=== PATIENT | female | born 1935 | race Caucasian/White ===

== ENCOUNTER 2017-07-12 12:05 | Inpatient (IN) | payer OTHER, MEDICARE ==
[2017-07-12] MEDS: IV NORMAL SALINE 1000ML BAG 1,000 ML IV ×2 (12:41→15:09)
[2017-07-12 12:44] LABS: INFLUENZA A PATIENT NEGATIVE (NEGATIVE); INFLUENZA B PATIENT NEGATIVE (NEGATIVE); OBC FLU VALID
[2017-07-12 12:51] LABS: BASO % 0 % (0-3); EOS % 0 % (0-3); HEMATOCRIT 43.9 % (36.0-47.0); HEMOGLOBIN 14.9 g/dL (12.0-15.5); LYMPH # 0.2 x10^3/uL (1.0-4.8); LYMPH % 2 % (24-48); MEAN CORPUSCULAR HEMOGLOBIN 32 pg (25-35); MEAN CORPUSCULAR HGB CONC 34 g/dL (31-37); MEAN CORPUSCULAR VOLUME 93 fL (79-100); MONO # 0.5 x10^3/uL (0.0-1.1); MONO % 4 % (0-9); NEUT % 94 % (31-73); PLATELET COUNT 167 x10^3/uL (140-400); RED BLOOD COUNT 4.71 x10^6/uL (3.50-5.40); WHITE BLOOD COUNT 12.8 x10^3/uL (4.0-11.0)
[2017-07-12 12:52] LABS: ADD MAN DIFF? YES
[2017-07-12 13:00] LABS: INR 1.1 (0.8-1.1); PARTIAL THROMBOPLASTIN TIME 25 SEC (24-38); PROTHROMBIN TIME PATIENT 13.2 SEC (11.7-14.0)
[2017-07-12 13:01] LABS: ANION GAP 11 (6-14); BLOOD UREA NITROGEN 13 mg/dL (7-20); BUN/CREATININE RATIO 14 (6-20); CALCIUM 9.5 mg/dL (8.5-10.1); CARBON DIOXIDE 27 mmol/L (21-32); CHLORIDE 98 mmol/L (98-107); CREATININE 0.9 mg/dL (0.6-1.0); GFR 59.9; GLUCOSE 145 mg/dL (70-99); POTASSIUM 3.5 mmol/L (3.5-5.1); SODIUM 136 mmol/L (136-145)
[2017-07-12 13:07] LABS: ALBUMIN 3.9 g/dL (3.4-5.0); ALK PHOS 65 U/L (46-116); ALT (SGPT) 18 U/L (14-59); AST (SGOT) 15 U/L (15-37); TOTAL BILIRUBIN 0.6 mg/dL (0.2-1.0); TOTAL PROTEIN 7.7 g/dL (6.4-8.2)
[2017-07-12 13:16] LABS: LACTIC ACID 2.5 mmol/L (0.4-2.0)
[2017-07-12 13:21] LABS: % BANDS 1 % (0-9); % BASOS 1 % (0-3); % LYMPHS 1 % (24-48); % MONOS 6 % (0-10); % SEGS 91 % (35-66)
[2017-07-12 13:22] LABS: PLT ESTIMATE ADEQUATE (ADEQUATE)
[2017-07-12 13:37] LABS: BILIRUBIN,URINE NEGATIVE (NEG); CLARITY,URINE CLEAR; GLUCOSE,URINE NEGATIVE (NEG); NITRITE,URINE NEGATIVE (NEG); PH,URINE 7.5; PROTEIN,URINE NEGATIVE (NEG-TRACE)
[2017-07-12 13:45] LABS: COLOR,URINE DK YELLOW
[2017-07-12 13:48] LABS: BACTERIA,URINE FEW /HPF (0-FEW); RBC,URINE 0 /HPF (0-2); SQUAMOUS EPITHELIAL CELL,UR MOD /LPF
[2017-07-12] MEDS ORDERED: LOPERAMIDE 2 MG CAPSULE PO (16:15)
[2017-07-12] MEDS ORDERED: DOCUSATE SODIUM 100 MG CAPSULE. PO (16:15)
[2017-07-12] MEDS ORDERED: ACETAMINOPHEN 325 MG TABLET. PO (16:15)
[2017-07-12] MEDS: GABAPENTIN 300 MG CAPSULE. PO ×2 (17:26→21:27)
[2017-07-12] MEDS: HYDROcodone/APAP 7.5/325MG 1 TAB TABLET PO (17:27)
[2017-07-12] MEDS ORDERED: NITROFURANTOIN MONOHYD/M-CRYST 100 MG CAPSULE. PO (21:00)
[2017-07-12] MEDS ORDERED: NON FORMULARY ITEM (Lactobacillus Acidophilus (Probiotic) 1 EACH) PO (21:00)
[2017-07-12] MEDS: carBAMazepine 200 MG TABLET PO (21:27)
[2017-07-12] MEDS: LACTOBACILLUS RHAMNOSUS GG 1 CAPSULE. PO (21:28)
[2017-07-12] MEDS: DONEPEZIL HCL 10 MG TABLET. PO (21:29)
[2017-07-13] MEDS: IV NORMAL SALINE 1000ML BAG 1,000 ML IV ×3 (01:01→13:05)
[2017-07-13 05:19] LABS: ADD MAN DIFF? NO
[2017-07-13 05:33] LABS: BASO % 0 % (0-3); EOS % 0 % (0-3); HEMATOCRIT 38.6 % (36.0-47.0); HEMOGLOBIN 13.2 g/dL (12.0-15.5); LYMPH # 0.6 x10^3/uL (1.0-4.8); LYMPH % 4 % (24-48); MEAN CORPUSCULAR HEMOGLOBIN 32 pg (25-35); MEAN CORPUSCULAR HGB CONC 34 g/dL (31-37); MEAN CORPUSCULAR VOLUME 94 fL (79-100); MONO # 0.6 x10^3/uL (0.0-1.1); MONO % 5 % (0-9); NEUT # 11.5 x10^3uL (1.8-7.7); NEUT % 90 % (31-73); PLATELET COUNT 161 x10^3/uL (140-400); RED BLOOD COUNT 4.12 x10^6/uL (3.50-5.40); WHITE BLOOD COUNT 12.8 x10^3/uL (4.0-11.0)
[2017-07-13 06:06] LABS: ALBUMIN/GLOBULIN RATIO 0.9 (1.0-1.7); ALK PHOS 44 U/L (46-116); ALT (SGPT) 17 U/L (14-59); ANION GAP 9 (6-14); AST (SGOT) 15 U/L (15-37); BLOOD UREA NITROGEN 12 mg/dL (7-20); BUN/CREATININE RATIO 20 (6-20); CALCIUM 8.2 mg/dL (8.5-10.1); CARBON DIOXIDE 26 mmol/L (21-32); CHLORIDE 100 mmol/L (98-107); CREATININE 0.6 mg/dL (0.6-1.0); GFR 95.7; GLUCOSE 148 mg/dL (70-99); POTASSIUM 3.2 mmol/L (3.5-5.1); SODIUM 135 mmol/L (136-145); TOTAL BILIRUBIN 0.5 mg/dL (0.2-1.0); TOTAL PROTEIN 6.5 g/dL (6.4-8.2)
[2017-07-13] MEDS: GABAPENTIN 300 MG CAPSULE. PO ×4 (09:18→21:51)
[2017-07-13] MEDS: ENOXAPARIN 40 MG/0.4 ML SYRINGE. SQ (09:18)
[2017-07-13] MEDS: carBAMazepine 200 MG TABLET PO ×2 (09:20→21:51)
[2017-07-13] MEDS: amLODIPine BESYLATE 10 MG TABLET PO (09:21)
[2017-07-13] MEDS: LISINOPRIL 20 MG TABLET PO (09:22)
[2017-07-13] MEDS: POTASSIUM CHLORIDE 20 MEQ TABLET.ER. PO (09:23)
[2017-07-13] MEDS: HYDROcodone/APAP 7.5/325MG 1 TAB TABLET PO ×2 (09:25→17:39)
[2017-07-13] MEDS: LACTOBACILLUS RHAMNOSUS GG 1 CAPSULE. PO ×2 (09:26→21:50)
[2017-07-13] MEDS: MELOXICAM 7.5 MG TABLET PO (09:28)
[2017-07-13] MEDS: cefTRIAXone IV Push 1 GM VIAL. IVP (13:10)
[2017-07-13] MEDS: VANCOMYCIN 1.5 GM in IV DEXTROSE 5 %-0.45 % NACL 500 ML IV (13:11)
[2017-07-13] MEDS: VANCOMYCIN PER PHARMACY MC (13:43)
[2017-07-13 16:15] LABS: MRSA BY PCR Negative (Negative)
[2017-07-13] MEDS: DONEPEZIL HCL 10 MG TABLET. PO (21:51)
[2017-07-14] MEDS: IV NORMAL SALINE 1000ML BAG 1,000 ML IV ×2 (01:35→14:10)
[2017-07-14 05:53] LABS: ADD MAN DIFF? NO
[2017-07-14 06:11] LABS: BASO % 0 % (0-3); EOS # 0.5 x10^3/uL (0.0-0.7); EOS % 6 % (0-3); HEMATOCRIT 39.8 % (36.0-47.0); HEMOGLOBIN 13.6 g/dL (12.0-15.5); LYMPH % 12 % (24-48); MEAN CORPUSCULAR HEMOGLOBIN 32 pg (25-35); MEAN CORPUSCULAR HGB CONC 34 g/dL (31-37); MEAN CORPUSCULAR VOLUME 94 fL (79-100); MONO # 0.8 x10^3/uL (0.0-1.1); MONO % 10 % (0-9); NEUT # 5.5 x10^3uL (1.8-7.7); NEUT % 71 % (31-73); PLATELET COUNT 151 x10^3/uL (140-400); RED BLOOD COUNT 4.26 x10^6/uL (3.50-5.40); RED CELL DISTRIBUTION WIDTH 12.7 % (11.5-14.5); WHITE BLOOD COUNT 7.8 x10^3/uL (4.0-11.0)
[2017-07-14 06:21] LABS: ANION GAP 8 (6-14); BLOOD UREA NITROGEN 9 mg/dL (7-20); CALCIUM 8.1 mg/dL (8.5-10.1); CARBON DIOXIDE 27 mmol/L (21-32); CHLORIDE 102 mmol/L (98-107); CREATININE 0.6 mg/dL (0.6-1.0); GFR 95.7; GLUCOSE 128 mg/dL (70-99); POTASSIUM 3.3 mmol/L (3.5-5.1); SODIUM 137 mmol/L (136-145)
[2017-07-14] MEDS: MELOXICAM 7.5 MG TABLET PO (10:08)
[2017-07-14] MEDS: LISINOPRIL 20 MG TABLET PO (10:09)
[2017-07-14] MEDS: HYDROcodone/APAP 7.5/325MG 1 TAB TABLET PO ×2 (10:10→16:27)
[2017-07-14] MEDS: amLODIPine BESYLATE 10 MG TABLET PO (10:10)
[2017-07-14] MEDS: GABAPENTIN 300 MG CAPSULE. PO ×3 (10:10→16:27)
[2017-07-14] MEDS: carBAMazepine 200 MG TABLET PO (10:10)
[2017-07-14] MEDS: LACTOBACILLUS RHAMNOSUS GG 1 CAPSULE. PO (10:11)
[2017-07-14] MEDS: POTASSIUM CHLORIDE 20 MEQ TABLET.ER. PO (10:11)
[2017-07-14] MEDS: ENOXAPARIN 40 MG/0.4 ML SYRINGE. SQ (10:12)
[2017-07-14] MEDS ORDERED: VANCOMYCIN 1 GM in IV 1/2 NORMAL SALINE 250 ML IV (13:00)
== END 2017-07-14 16:38 | disposition home or self-care (01) | DRG 871 ==
LOC: ER 12:05 → 6 SOUTH 14:00
DX: A41.9 Sepsis, unspecified organism (principal); G93.41 Metabolic encephalopathy; E78.5 Hyperlipidemia, unspecified; E87.6 Hypokalemia; F03.90 Unspecified dementia, unspecified severity, without behavioral disturbance, psychotic disturbance, mood disturbance, and anxiety; I10 Essential (primary) hypertension; G50.0 Trigeminal neuralgia; M19.90 Unspecified osteoarthritis, unspecified site; J30.9 Allergic rhinitis, unspecified
CPT/HCPCS: 36415; 51701; 71045; 80048; 80053; 81001; 83605; 85007; 85025; 85610; 85730; 87040; 87086; 87205; 87641; 87804; 87804-59; 92526-GN; 92610-GN; 96361; 96365; 97116-GP; 97163-GP; 97165-GO; 99285-25; J0690; J0696; J1650; J3370; J7030

== ENCOUNTER 2018-05-29 11:27 | Emergency (ER) | payer MEDICARE, MEDICAID ==
[~2018-05-29] VITALS: Ht 165.1 cm; Wt 74.8 kg
[~2018-05-29 11:27] MED LIST: ACET325T9 PO; AMLO1CAP15 PO; ATEN50TA PO; CARB100T4 PO; CIPR500T94 PO; CRAN450T3 PO; DOCU100C28 PO; DONE10TA7 PO; GABA600T2 PO; HYDR-2765 PO; LACT1CAP6 PO; LEVO500T59 PO; LISI-334 PO; LOPE2CAP PO; MAGN400T3 PO; MELO15TA6 PO; NITR100C62 PO; POTA20TA4 PO; POTA20TA82 PO
--- NOTE | 2018-05-29 11:44 | PHYS DOC ---
Past Medical History Past Medical History: Arthritis, High Cholesterol, Hypertension, Other Additional Past Medical Histor: TRIGEMINAL NEURALGI, PVD, allergic rhinitis, alz. DISEASE Past Surgical History: Other Additional Past Surgical Histo: DENIES Alcohol Use: None Drug Use: None Adult General Chief Complaint Chief Complaint: MECHANICAL FALL HPI HPI Patient is a 83 year old female [facility] after she fell, hit her head on the floor. There was no loss of consciousness. Patient complaint of left arm pain, denies any back pain, no pelvic pain, no hip pain, no lower extremity pain. Review of Systems Review of Systems Constitutional: Denies fever or chills [] Eyes: Denies change in visual acuity, redness, or eye pain [] HENT: Denies nasal congestion or sore throat [] Respiratory: Denies cough or shortness of breath [] Cardiovascular: No additional information not addressed in HPI [] GI: Denies abdominal pain, nausea, vomiting, bloody stools or diarrhea [] : Denies dysuria or hematuria [] Musculoskeletal: Denies back pain or joint pain. POSITIVE FOR LEFT ARM PAIN. Integument: Denies rash or skin lesions [] Neurologic: Denies headache, focal weakness or sensory changes [] Endocrine: Denies polyuria or polydipsia [] All other systems were reviewed and found to be within normal limits, except as documented in this note. Allergies Allergies Allergies Coded Allergies Type Severity Reaction Last Updated Verified No Known Drug Allergies 08/10/13 No Physical Exam Physical Exam Constitutional: Well developed, well nourished, no acute distress, non-toxic appearance. [] HENT: Normocephalic, There is skin contusion on forehead, bilateral external ears normal, oropharynx moist, no oral exudates, nose normal. [] Eyes: PERRLA, EOMI, conjunctiva normal, no discharge. [] Neck: Normal range of motion, no tenderness, supple, no stridor. [] Cardiovascular:Heart rate regular rhythm, LOUD SYSTOLIC EJECTION MURMUR. Lungs & Thorax: Bilateral breath sounds clear to auscultation [] Abdomen: Bowel sounds normal, soft, no tenderness, no masses, no pulsatile masses. [] Skin: Warm, dry, no erythema, no rash. [] Back: No tenderness, no CVA tenderness. [] Extremities: No tenderness, no cyanosis, no clubbing, ROM intact, no edema. LEFT ARM TENDER TO PALPATION, NO SWELLING, NO OPEN WOUND. Neurologic: Alert and oriented X 3, normal motor function, normal sensory function, no focal deficits noted. [] Psychologic: Affect normal, judgement normal, mood normal. [] Current Patient Data Vital Signs Vital Signs Date Time Temp Pulse Resp B/P (MAP) Pulse Ox O2 Delivery O2 Flow Rate FiO2 05/29/18 15:30 58 20 96 05/29/18 11:27 97.3 179/73 (108) Room Air 97.3 EKG EKG [] Radiology/Procedures Radiology/Procedures [][facility] [address] [place] [address] IMAGING REPORT Signed PATIENT: JOHN MARCOS ACCOUNT: [id number] : 1935 LOCATION: ER AGE: 83 SEX: F EXAM STATUS: REG ER ORD. PHYSICIAN: KATIE TIJERINA DO REASON: FELL AT THE WA, RIGHT SIDE HEAD INJURY PROCEDURE: CT HEAD AND CERVICAL SPINE WO CT Head W/O Contrast: History: FALL, RIGHT SIDE HEAD INJURY, ALTERED MENTAL STATUS
NECK PAIN, PRIOR SENT Comparison: October 24, 2011 Axial images were obtained without contrast. There is moderate diffuse atrophy. There is no mass effect, extraaxial fluid collections or hydrocephalus. There is no gross bleed. Moderate, patchy periventricular and subcortical white matter hypoattenuation is seen. There is no focal loss of peter-white matter distinction to suggest acute ischemia, i.e. stroke. Impression: No acute findings. End impression CT C-Spine without contrast: Clinical History: FALL, RIGHT SIDE HEAD INJURY, ALTERED MENTAL STATUS
NECK PAIN, PRIOR SENT Technique: Axial helical images of the cervical spine were obtained without contrast, axial coronal and sagittal reconstruction was performed. Findings: There is no loss of vertebral body stature. There is no prevertebral soft tissue swelling. The vertebral bodies are well aligned. The C1-C2 relationship is normal. The visualized osseous structures appear normal. Evaluation of the central canal is limited without contrast. There is multiple posterior disc bulges resulting in flattening of the thecal sac. There does not appear to be gross flattening of the cervical cord. There is moderate narrowing of multiple neuroforamen. There is multiple small hyperattenuating masses in the thyroid. There is a 12 mm x 9 mm soft tissue mass in the left parotid. Impression: 1. Moderate degenerative changes with no evidence of an acute fracture. Clinical correlation suggested. 2. Multiple masses in the thyroid recommend correlation with TSH. Follow-up ultrasound as an outpatient may be necessary. 3. Left parotid mass appears benign. Recommend a follow-up ultrasound as an outpatient. RS Compliance Statement: One or more of the following individualized dose reduction techniques were utilized for this examination: 1. Automated exposure control 2. Adjustment of the mA and/or kV according to patient size 3. Use of iterative reconstruction technique Electronically signed by: Virgilio Castro III, MD (05/29/2018 12:33 PM) [facility] DICTATED and SIGNED BY: VIRGILIO CASTRO III, MD DATE: 05/29/18 1223 [facility] [address] [place], [place] [id number] IMAGING REPORT Signed PATIENT: JOHN MARCOS ACCOUNT: [id number] : 1935 LOCATION: ER AGE: 83 SEX: F EXAM STATUS: REG ER ORD. PHYSICIAN: KATIE TIJERINA DO REASON: FELL, LEFT ARM PAIN PROCEDURE: HUMERUS LEFT Left humerus, 2 views, 05/29/2018: HISTORY: Fall The bony structures are demineralized. No humeral fracture is identified. IMPRESSION: No acute bony abnormality is detected. Portable chest, 05/29/2018: HISTORY: Follow-up, palpitations Comparison is made to a study from 10/23/2011. The patient is rotated to the right. The heart is at the upper limits of normal in size. There is calcific plaquing of the aorta. The pulmonary vascularity is normal. No pulmonary infiltrate is seen. There is no evidence of pneumothorax or pleural fluid. Moderate spurring is present in the spine. IMPRESSION: 1. Aortic atherosclerosis. 2. No acute cardiopulmonary abnormality is detected. Electronically signed by: Jono Hawkins MD (05/29/2018 12:53 PM) [facility] DICTATED and SIGNED BY: JONO HAWKINS MD DATE: 05/29/18 1248 Course & Med Decision Making Course & Med Decision Making Pertinent Labs and Imaging studies reviewed. (See chart for details) [] Dragon Disclaimer Dragon Disclaimer This electronic medical record was generated, in whole or in part, using a voice recognition dictation system. Departure Departure Impression: Primary Impression: Head contusion Disposition: HOME, SELF-CARE Condition: STABLE Referrals: ELLIOT TREVIZO MD (PCP) FOLLOW UP WITH YOUR DOCTOR IN 2 DAYS FOR REEVALUATION. Patient Instructions: Head Injury, Adult TIJERINAKATIE DO May 29, 2018 11:44
--- NOTE | 2018-05-29 12:37 | RAD ---
CT Head W/O Contrast: History: FALL, RIGHT SIDE HEAD INJURY, ALTERED MENTAL STATUS
NECK PAIN, PRIOR SENT Comparison: October 24, 2011 Axial images were obtained without contrast. There is moderate diffuse atrophy. There is no mass effect, extraaxial fluid collections or hydrocephalus. There is no gross bleed. Moderate, patchy periventricular and subcortical white matter hypoattenuation is seen. There is no focal loss of peter-white matter distinction to suggest acute ischemia, i.e. stroke. Impression: No acute findings. End impression CT C-Spine without contrast: Clinical History: FALL, RIGHT SIDE HEAD INJURY, ALTERED MENTAL STATUS
NECK PAIN, PRIOR SENT Technique: Axial helical images of the cervical spine were obtained without contrast, axial coronal and sagittal reconstruction was performed. Findings: There is no loss of vertebral body stature. There is no prevertebral soft tissue swelling. The vertebral bodies are well aligned. The C1-C2 relationship is normal. The visualized osseous structures appear normal. Evaluation of the central canal is limited without contrast. There is multiple posterior disc bulges resulting in flattening of the thecal sac. There does not appear to be gross flattening of the cervical cord. There is moderate narrowing of multiple neuroforamen. There is multiple small hyperattenuating masses in the thyroid. There is a 12 mm x 9 mm soft tissue mass in the left parotid. Impression: 1. Moderate degenerative changes with no evidence of an acute fracture. Clinical correlation suggested. 2. Multiple masses in the thyroid recommend correlation with TSH. Follow-up ultrasound as an outpatient may be necessary. 3. Left parotid mass appears benign. Recommend a follow-up ultrasound as an outpatient. PQRS Compliance Statement: One or more of the following individualized dose reduction techniques were utilized for this examination: 1. Automated exposure control 2. Adjustment of the mA and/or kV according to patient size 3. Use of iterative reconstruction technique Electronically signed by: Mayo Muñoz III, MD (05/29/2018 12:33 PM) [id number]
--- NOTE | 2018-05-29 12:57 | RAD ---
Left humerus, 2 views, 05/29/2018: HISTORY: Fall The bony structures are demineralized. No humeral fracture is identified. IMPRESSION: No acute bony abnormality is detected. Portable chest, 05/29/2018: HISTORY: Follow-up, palpitations Comparison is made to a study from 10/23/2011. The patient is rotated to the right. The heart is at the upper limits of normal in size. There is calcific plaquing of the aorta. The pulmonary vascularity is normal. No pulmonary infiltrate is seen. There is no evidence of pneumothorax or pleural fluid. Moderate spurring is present in the spine. IMPRESSION: 1. Aortic atherosclerosis. 2. No acute cardiopulmonary abnormality is detected. Electronically signed by: Jono Hawkins MD (05/29/2018 12:53 PM) [facility]
[2018-05-29 15:00] VITALS: BP 144/65
== END 2018-05-29 15:45 | disposition home or self-care (01) ==
LOC: ER 11:27
DX: S00.93XA Contusion of unspecified part of head, initial encounter (principal); M79.602 Pain in left arm; E78.00 Pure hypercholesterolemia, unspecified; I10 Essential (primary) hypertension; G30.9 Alzheimer's disease, unspecified; F02.80 Dementia in other diseases classified elsewhere, unspecified severity, without behavioral disturbance, psychotic disturbance, mood disturbance, and anxiety; I49.3 Ventricular premature depolarization; W18.09XA Striking against other object with subsequent fall, initial encounter; Y93.89 Activity, other specified; Y92.89 Other specified places as the place of occurrence of the external cause; Y99.8 Other external cause status
CPT/HCPCS: 70450; 71045; 72125; 73060; 99284-25

== ENCOUNTER 2019-02-04 17:37 | Emergency (ER) | payer MEDICARE, MEDICAID ==
[~2019-02-04] VITALS: Ht 172.7 cm; Wt 74.8 kg
[~2019-02-04 17:37] MED LIST changes: -AMLO1CAP15 PO; +AMLO1CAP54 PO; -GABA600T2 PO; +GABA600T7 PO
--- NOTE | 2019-02-04 18:06 | PHYS DOC ---
Past Medical History Past Medical History: Arthritis, Dementia, High Cholesterol, Hypertension, Other Additional Past Medical Histor: TRIGEMINAL NEURALGI, PVD, allergic rhinitis, alz. DISEASE,neuropathy (CAMRYN CASTRO MD) Past Medical History Limited due to dementia (MARA ISABEL DO) Past Surgical History: Other Additional Past Surgical Histo: unknown (CAMRYN CASTRO MD) Past Surgical History Limited due to dementia (MARA ISABEL DO) Alcohol Use: None Drug Use: None (CAMRYN CASTRO MD) Social History Limited due to dementia (MARA ISABEL DO) Adult General Chief Complaint Chief Complaint: altered level of consciousness HPI HPI Patient is a 83 year old female patient with history of dementia [facility] jail who presents EMS with increasing confusion. Patient is disoriented x3 and unable to give history. senior living stated she is usually disoriented and this is her baseline but also they mentioned that she is more confused than his usual. (CAMRYN CASTRO MD) HPI Limited due to dementia (MARA ISABEL DO) Review of Systems Review of Systems Unable to obtain (CAMRYN CASTRO MD) Review of Systems Limited due to dementia (MARA ISABEL DO) Current Medications Current Medications Current Medications Medications (Trade) Dose Ordered Sig/Nader Start Time Stop Time Status Last Admin Dose Admin Ceftriaxone Sodium (Rocephin) 1 gm 1X ONCE 02/04/19 20:00 02/04/19 20:01 DC 02/04/19 19:39 1 GM Lorazepam (Ativan Inj) 0.5 mg 1X ONCE 02/04/19 18:30 02/04/19 18:31 DC 02/04/19 19:03 0.5 MG Sodium Chloride 1,000 ml @ 1,000 mls/hr 1X ONCE 02/04/19 18:30 02/04/19 19:29 DC 02/04/19 19:03 1,000 MLS/HR (MARA ISABEL DO) Allergies Allergies Allergies Coded Allergies Type Severity Reaction Last Updated Verified No Known Drug Allergies 08/10/13 No (MARA ISABEL DO) Physical Exam Physical Exam Constitutional: Well nourished, mild distress, non-toxic appearance. [] HENT: Normocephalic, atraumatic. Eyes: PERRLA, EOMI, conjunctiva normal, no discharge. [] Neck: Normal range of motion, no tenderness, supple, no stridor. [] Cardiovascular:Heart rate regular rhythm, no murmur [] Lungs & Thorax: Bilateral breath sounds clear to auscultation [] Abdomen: Bowel sounds normal, soft, without guarding, no tenderness, no masses, no pulsatile masses. [] Skin: Warm, dry, no erythema, no rash. [] Back: No tenderness, no CVA tenderness. [] Extremities: No tenderness, no cyanosis, no clubbing, ROM intact, no edema. [] Neurologic: Alert , disoriented x 3 �3, no focal deficits noted. [] Psychologic: Unable to evaluate (CAMRYN CASTRO MD) Physical Exam Constitutional: Well developed, well nourished, no acute distress, non-toxic appearance HENT: Normocephalic, atraumatic, oropharynx moist Eyes: PERRL, EOMI, conjunctiva normal, no discharge Neck: Normal range of motion, no tenderness, supple Cardiovascular: Heart rate normal, regular rhythm Lungs & Thorax: Bilateral breath sounds clear to auscultation, no wheezing Abdomen: Soft, no tenderness Skin: Warm, dry, no erythema, no rash Extremities: No tenderness, ROM intact, no edema Neurologic: Alert and confused, normal motor function, normal sensory function, no focal deficits noted Psychologic: Limited, judgement abnormal (MARA ISABEL DO) Current Patient Data Vital Signs Vital Signs Date Time Temp Pulse Resp B/P (MAP) Pulse Ox O2 Delivery O2 Flow Rate FiO2 02/04/19 18:07 98.6 92 18 149/63 (91) 98 Room Air 98.6 (MARA ISABEL DO) Lab Values Laboratory Tests Test 02/04/19 17:45 02/04/19 18:00 02/04/19 18:10 02/04/19 18:54 Lactic Acid Level 0.6 mmol/L (0.4-2.0) KK-Iws-Y-Type Natriuretic Peptide 420 pg/mL (0-449) White Blood Count 10.0 x10^3/uL (4.0-11.0) Red Blood Count 4.15 x10^6/uL (3.50-5.40) Hemoglobin 13.5 g/dL (12.0-15.5) Hematocrit 38.3 % (36.0-47.0) Mean Corpuscular Volume 92 fL (79-100) Mean Corpuscular Hemoglobin 33 pg (25-35) Mean Corpuscular Hemoglobin Concent 35 g/dL (31-37) Red Cell Distribution Width 12.9 % (11.5-14.5) Platelet Count 202 x10^3/uL (140-400) Neutrophils (%) (Auto) 77 % (31-73) H Lymphocytes (%) (Auto) 11 % (24-48) L Monocytes (%) (Auto) 9 % (0-9) Eosinophils (%) (Auto) 2 % (0-3) Basophils (%) (Auto) 1 % (0-3) Neutrophils # (Auto) 7.7 x10^3/uL (1.8-7.7) Lymphocytes # (Auto) 1.1 x10^3/uL (1.0-4.8) Monocytes # (Auto) 0.9 x10^3/uL (0.0-1.1) Eosinophils # (Auto) 0.2 x10^3/uL (0.0-0.7) Basophils # (Auto) 0.1 x10^3/uL (0.0-0.2) Prothrombin Time 14.0 SEC (11.7-14.0) Prothrombin Time INR 1.1 (0.8-1.1) Sodium Level 133 mmol/L (136-145) L Potassium Level 4.0 mmol/L (3.5-5.1) Chloride Level 95 mmol/L (98-107) L Carbon Dioxide Level 29 mmol/L (21-32) Anion Gap 9 (6-14) Blood Urea Nitrogen 21 mg/dL (7-20) H Creatinine 0.7 mg/dL (0.6-1.0) Estimated GFR (Cockcroft-Gault) 79.9 BUN/Creatinine Ratio 30 (6-20) H Glucose Level 113 mg/dL (70-99) H Calcium Level 8.8 mg/dL (8.5-10.1) Magnesium Level 1.9 mg/dL (1.8-2.4) Total Bilirubin 0.5 mg/dL (0.2-1.0) Aspartate Amino Transferase (AST) 10 U/L (15-37) L Alanine Aminotransferase (ALT) 10 U/L (14-59) L Alkaline Phosphatase 72 U/L (46-116) Creatine Kinase 67 U/L (26-192) Troponin I Quantitative < 0.017 ng/mL (0.000-0.055) Total Protein 7.0 g/dL (6.4-8.2) Albumin 3.4 g/dL (3.4-5.0) Albumin/Globulin Ratio 0.9 (1.0-1.7) L Carbamazepine (Tegretol) Level 5.8 mcg/mL (4.0-12.0) Carbamazepine Last Dose Date 04/11/11 Carbamazepine Last Dose Time 1111 Urine Collection Type U cath Urine Color Yellow Urine Clarity Cloudy Urine pH 7.0 Urine Specific [place] 1.015 Urine Protein Negative mg/dL (NEG-TRACE) Urine Glucose (UA) Negative mg/dL (NEG) Urine Ketones (Stick) Negative mg/dL (NEG) Urine Blood Trace (NEG) Urine Nitrite Positive (NEG) Urine Bilirubin Negative (NEG) Urine Urobilinogen Dipstick 1.0 mg/dL (0.2 mg/dL) Urine Leukocyte Esterase Large (NEG) Urine RBC 0 /HPF (0-2) Urine WBC 20-40 /HPF (0-4) Urine Squamous Epithelial Cells Few /LPF Urine Amorphous Sediment Present /HPF Urine Bacteria Moderate /HPF (0-FEW) Laboratory Tests 02/04/19 18:10 Laboratory Tests 02/04/19 18:10 (MARA ISABEL DO) EKG EKG [] (CAMRYN CASTRO MD) EKG @1826 NSR at 93bpm, NO ST elevation, t wave inversion aVL (MARA ISABEL DO) Radiology/Procedures Radiology/Procedures [] (CAMRYN CASTRO MD) Radiology/Procedures PROCEDURE: CT HEAD WO CONTRAST Exam: CT head INDICATION: Altered level of consciousness TECHNIQUE: Sequential axial images through the head were obtained without the administration of IV contrast. Comparisons: 05/29/2019 FINDINGS: No focal parenchymal lesion or hemorrhage is identified. There is no midline shift or sulcal effacement. Patchy hypodensity within the periventricular and subcortical white matter which is similar when compared to the prior exam. No acute vascular territory infarction is identified. Sawant-white distinction is preserved. The ventricular system is within normal limits without compression hydrocephalus. The basal cisterns are well maintained. The visualized portions of the paranasal sinuses and mastoid air cells are well-pneumatized. No acute fractures. IMPRESSION: Chronic ischemic changes without acute intracranial abnormality. Exposure: One or more of the following in the visualized dose reduction techniques were utilized for this examination: 1. Automated exposure control 2. Adjustment of the MA and/or KV according to patient size Use of iterative of reconstructive technique Electronically signed by: Nikki Delong MD (02/04/2019 6:46 PM) [place] [id number] PROCEDURE: PORTABLE CHEST 1V Exam: Chest one view INDICATION: Altered level consciousness TECHNIQUE: Frontal view of the chest Comparisons: None FINDINGS: The cardiomediastinal silhouette and pulmonary vessels are within normal limits. The lung and pleural spaces are clear. IMPRESSION: No acute cardiopulmonary process. Electronically signed by: Nikki Delong MD (02/04/2019 7:42 PM) [place] [id number] (MARA ISABEL DO) Course & Med Decision Making Course & Med Decision Making Pertinent Labs and Imaging studies are pending. Evaluation of patient in ER showed 83-year-old female patient presents of jail with dementia in because of increasing confusion. Labs and CT of head is pending. Sign out given to Dr Isabel at 1800 for further evaluation and final disposition. Discussed current findings and plan with patient and family, who acknowledge understanding and agreement. (CAMRYN CASTRO MD) Course & Med Decision Making Sign out received from Dr. Castro for patient with baseline dementia who presents with report of increased confusion and blood pressures 90s/60s. BP improved upon arrival. Patient pleasantly confused. EKG stable. Labs obtained and posted to chart. WBC WNL. Lactic acid WNL. UA with signs of infection. Empiric antibiotic given. CXR and CT head without acute process. Patient stable for discharge back to jail and follow-up with PCP. Discussed findings and plan with family, who acknowledge understanding and agreement. (MARA ISABEL DO) Dragon Disclaimer Dragon Disclaimer This electronic medical record was generated, in whole or in part, using a voice recognition dictation system. (CAMRYN CASTRO MD) Departure Departure Impression: Primary Impression: Altered level of consciousness Additional Impressions: Dementia Urinary tract infection Disposition: 01 HOME, SELF-CARE (back to jail) Condition: STABLE Referrals: ELLIOT TREVIZO MD (PCP) Patient Instructions: Altered Mental Status, Dementia, [id number], Urinary Tract Infection, [id number] Scripts Cephalexin (KEFLEX) 500 Mg Capsule 500 MG PO TID for 7 Days, #21 CAP Prov: MARA ISABEL DO 02/04/19 Problem Qualifiers Additional Impressions: Dementia Dementia type: unspecified type Dementia behavioral disturbance: without behavioral disturbance Qualified Codes: F03.90 - Unspecified dementia without behavioral disturbance Urinary tract infection Urinary tract infection type: acute cystitis Hematuria presence: without hematuria Qualified Codes: N30.00 - Acute cystitis without hematuria CAMRYN CASTRO MD Feb 04, 2019 18:06 MARA ISABEL DO Feb 04, 2019 18:34
[2019-02-04] MEDS ORDERED: IV NORMAL SALINE 1000ML BAG 1,000 ML IV ONE (18:30)
[2019-02-04 18:52] LABS: BASO # 0.1 x10^3/uL (0.0-0.2); BASO % 1 % (0-3); EOS # 0.2 x10^3/uL (0.0-0.7); EOS % 2 % (0-3); HEMATOCRIT 38.3 % (36.0-47.0); HEMOGLOBIN 13.5 g/dL (12.0-15.5); LYMPH # 1.1 x10^3/uL (1.0-4.8); LYMPH % 11 % (24-48); MEAN CORPUSCULAR HEMOGLOBIN 33 pg (25-35); MEAN CORPUSCULAR HGB CONC 35 g/dL (31-37); MEAN CORPUSCULAR VOLUME 92 fL (79-100); MONO # 0.9 x10^3/uL (0.0-1.1); MONO % 9 % (0-9); NEUT # 7.7 x10^3/uL (1.8-7.7); NEUT % 77 % (31-73); PLATELET COUNT 202 x10^3/uL (140-400); RED BLOOD COUNT 4.15 x10^6/uL (3.50-5.40); RED CELL DISTRIBUTION WIDTH 12.9 % (11.5-14.5)
[2019-02-04 19:05] LABS: BILIRUBIN,URINE NEGATIVE (NEG); CLARITY,URINE CLOUDY; COLOR,URINE YELLOW; NITRITE,URINE POSITIVE (NEG); PROTEIN,URINE NEGATIVE (NEG-TRACE)
[2019-02-04 19:13] LABS: CALCIUM 8.8 mg/dL (8.5-10.1); CREATININE 0.7 mg/dL (0.6-1.0); GFR 79.9
[2019-02-04 19:16] LABS: AMORPHOUS SEDIMENT,UR PRESENT /HPF; BACTERIA,URINE MODERATE /HPF (0-FEW); RBC,URINE 0 /HPF (0-2); SQUAMOUS EPITHELIAL CELL,UR FEW /LPF; WBC,URINE 20-40 /HPF (0-4)
[2019-02-04 19:20] LABS: ALBUMIN 3.4 g/dL (3.4-5.0); ALBUMIN/GLOBULIN RATIO 0.9 (1.0-1.7); MAGNESIUM 1.9 mg/dL (1.8-2.4); TOTAL BILIRUBIN 0.5 mg/dL (0.2-1.0)
--- NOTE | 2019-02-04 19:30 | RAD ---
Exam: CT head INDICATION: Altered level of consciousness TECHNIQUE: Sequential axial images through the head were obtained without the administration of IV contrast. Comparisons: 05/29/2019 FINDINGS: No focal parenchymal lesion or hemorrhage is identified. There is no midline shift or sulcal effacement. Patchy hypodensity within the periventricular and subcortical white matter which is similar when compared to the prior exam. No acute vascular territory infarction is identified. Sawant-white distinction is preserved. The ventricular system is within normal limits without compression hydrocephalus. The basal cisterns are well maintained. The visualized portions of the paranasal sinuses and mastoid air cells are well-pneumatized. No acute fractures. IMPRESSION: Chronic ischemic changes without acute intracranial abnormality. Exposure: One or more of the following in the visualized dose reduction techniques were utilized for this examination: 1. Automated exposure control 2. Adjustment of the MA and/or KV according to patient size Use of iterative of reconstructive technique Electronically signed by: Nikki Delong MD (02/04/2019 6:46 PM) [facility]
[2019-02-04 19:44] LABS: CARBAM 5.8 mcg/mL (4.0-12.0)
--- NOTE | 2019-02-04 19:45 | RAD ---
Exam: Chest one view INDICATION: Altered level consciousness TECHNIQUE: Frontal view of the chest Comparisons: None FINDINGS: The cardiomediastinal silhouette and pulmonary vessels are within normal limits. The lung and pleural spaces are clear. IMPRESSION: No acute cardiopulmonary process. Electronically signed by: Nikki Delong MD (02/04/2019 7:42 PM) [facility]
[2019-02-04] MEDS ORDERED: cefTRIAXone IV Push 1 GM VIAL. IVP ONE (20:00)
[2019-02-04] MEDS ORDERED: CEPH-264 PO (20:02)
[2019-02-04 21:15] VITALS: BP 174/60
--- NOTE | 2019-02-07 07:09 | EKG ---
[facility] [address] [place] [address] Test Date: 2019-02-04 Test Time: 18:26:49 Pat Name: JOHN MARCOS Department: Room: Gender: F Business Strategist: : 1935 Requested By: CAMRYN CASTRO Order Number: [id number] Reading MD: Measurements Intervals [place] Rate: 93 P: -17 WA: 214 QRS: -34 QRSD: 84 T: 71 QT: 328 QTc: 410 Interpretive Statements SINUS RHYTHM PROLONGED WA INTERVAL ABNORMAL LEFT AXIS DEVIATION LEFT ANTERIOR FASCICULAR BLOCK T ABNORMALITY IN HIGH LATERAL LEADS ABNORMAL ECG RI6.01 Unconfirmed report No previous ECG available for comparison
== END 2019-02-04 21:41 | disposition home or self-care (01) ==
LOC: ER 17:37
DX: F03.90 Unspecified dementia, unspecified severity, without behavioral disturbance, psychotic disturbance, mood disturbance, and anxiety (principal); N30.00 Acute cystitis without hematuria; R41.0 Disorientation, unspecified; I10 Essential (primary) hypertension; E78.00 Pure hypercholesterolemia, unspecified; I73.9 Peripheral vascular disease, unspecified; Z86.69 Personal history of other diseases of the nervous system and sense organs
CPT/HCPCS: 36415; 70450; 71045; 80053; 80156; 81001; 82550; 83605; 83735; 83880; 84484; 85025; 85610; 87040; 87086; 93005; 96361; 96374; 96375; 99285; J0696; J2060; J7030; P9612

== ENCOUNTER 2019-10-19 07:50 | Emergency (ER) | payer MEDICARE, MEDICAID ==
[~2019-10-19] VITALS: Ht 170.2 cm; Wt 79.5 kg
[~2019-10-19 07:50] MED LIST changes: +CEPH-264 PO; +CIPR250T30 PO; +DOXY100T PO; -MAGN400T3 PO; +MAGN400T5 PO; -POTA20TA82 PO
--- NOTE | 2019-10-19 08:27 | PHYS DOC ---
Past Medical History Past Medical History: Arthritis, Dementia, High Cholesterol, Hypertension, Other Additional Past Medical Histor: TRIGEMINAL NEURALGI, PVD, allergic rhinitis, alz. DISEASE,neuropathy Past Surgical History: Other Additional Past Surgical Histo: unknown Smoking Status: Never Smoker Alcohol Use: None Drug Use: None Adult General Chief Complaint Chief Complaint: MECHANICAL FALL HPI HPI Patient is a 84 year old residential patient with history of dementia currently not anticoagulation therapy presents with unwitnessed fall from standing. Patient reports right hip pain. She denies hitting her head, headache, neck pain. No nausea vomiting. Patient does not recall because of fall. No reported recent illness. No fever chills, sweats, cough, sore throat. No other acute symptoms or complaints. History is limited due to the presence of dementia [] Review of Systems Review of Systems ROS a per HPI All other systems were reviewed and found to be within normal limits, except as documented in this note. Allergies Allergies Allergies Coded Allergies Type Severity Reaction Last Updated Verified No Known Drug Allergies 08/10/13 No Physical Exam Physical Exam Constitutional: Well developed, well nourished, no acute distress, non-toxic appearance. [] HENT: Normocephalic, atraumatic, bilateral external ears normal, nose normal. [] Eyes: PERRLA, EOMI, conjunctiva normal. [] Neck: Normal range of motion, no tenderness. [] Cardiovascular:Heart rate regular rhythm, no murmur [] Lungs & Thorax: Bilateral breath sounds clear to auscultation [] Abdomen: Bowel sounds normal, soft, no tenderness. [] Skin: Warm, dry. [] Back: No tenderness. [] Extremities: Pelvis stable, no shortening or rotation of extremity, right lateral hip tenderness with pain on range of motion.. [] Neurologic: Alert and oriented X 1, normal motor function, normal sensory function, no focal deficits noted. [] Psychologic: Affect normal, judgement normal, mood normal. [] Current Patient Data Vital Signs Vital Signs Date Time Temp Pulse Resp B/P (MAP) Pulse Ox O2 Delivery O2 Flow Rate FiO2 10/19/19 08:13 97.6 65 18 157/68 (97) 97 Room Air 97.6 EKG EKG [] Radiology/Procedures Radiology/Procedures [] Course & Med Decision Making Course & Med Decision Making Pertinent Labs and Imaging studies reviewed. (See chart for details) [No gross trauma on exam. Patient alert and oriented to person with stable vital signs. Right hip pain, tenderness with no deformity bruising swelling. Exam and imaging studies consistent with chronic osteoarthritis. Recommend patient return residential, close monitoring and PCP follow-up. Return precautions reviewed] Dragon Disclaimer Dragon Disclaimer This electronic medical record was generated, in whole or in part, using a voice recognition dictation system. Departure Departure Impression: Primary Impression: Right hip pain Additional Impressions: Osteoarthritis Dementia Disposition: 01 HOME, SELF-CARE Condition: STABLE Referrals: ELLIOT TREVIZO MD (PCP) Patient Instructions: Hip Pain, Osteoarthritis Additional Instructions: Annia was evaluated in the emergency department with fall and right hip pain. Imaging studies were performed and did not show evidence of acute injury. Please perform neuro checks every 4 hours for the next 24 hours and follow-up with PCP 2 to 3 days for reevaluation. Problem Qualifiers DAVID GUAMAN DO October 19, 2019 08:27
--- NOTE | 2019-10-19 08:56 | RAD ---
Examination: 2 views of the right hip with frontal view of the pelvis History history of pain COMPARISON: None available. FINDINGS: Moderate degenerative changes lower lumbar spine. Moderate degenerative changes bilateral hip joints. Osseous demineralization limits evaluation. There is no obvious acute fracture evident. IMPRESSION: 1. No acute osseous findings however evaluation is limited due to osseous demineralization. 2. Moderate degenerative changes bilateral hip joints. Electronically signed by: Maximo Hairston MD (10/19/2019 8:53 AM) [id number]
--- NOTE | 2019-10-19 10:06 | RAD ---
CT pelvis without contrast HISTORY: Trauma, right hip pain. COMPARISON: Right hip x-rays October 19, 2019. FINDINGS: No acute fracture of the pelvis and bilateral hips. There is a mild cortical regularity of the right inferior pubic ramus which may be an old healed fracture deformity. There is bilateral hip osteoarthritis with joint space narrowing, joint capsule and labral calcifications and mild spurring of the femoral head and acetabuli. No soft tissue hematoma. Arterial vascular calcifications. Rectosigmoid diverticulosis. Lumbar disc disease and facet arthritis with spurring with severe spinal canal stenosis L4-5. IMPRESSION: No acute osseous injury of the pelvis. Bilateral hip osteoarthritis. Exposure: One or more of the following individualized dose reduction techniques were utilized for this examination: 1. Automated exposure control 2. Adjustment of the mA and/or kV according to patient size 3. Use of iterative reconstruction technique Electronically signed by: Geremias Stout MD (10/19/2019 10:02 AM) [id number]
[2019-10-19 10:15] VITALS: BP 152/71
[2019-10-19] MEDS ORDERED: HYDROcodone/APAP 5/325MG 1 TAB TABLET PO ONE (10:30)
== END 2019-10-19 11:36 | disposition home or self-care (01) ==
LOC: ER 07:50
DX: M25.551 Pain in right hip (principal); M16.11 Unilateral primary osteoarthritis, right hip; F03.90 Unspecified dementia, unspecified severity, without behavioral disturbance, psychotic disturbance, mood disturbance, and anxiety; E78.00 Pure hypercholesterolemia, unspecified; I10 Essential (primary) hypertension; Z98.890 Other specified postprocedural states
CPT/HCPCS: 72192; 73502; 99284